=== PATIENT | female | born 1970 | race Caucasian/White ===

== ENCOUNTER → 2021-04-21 | Outpatient (CLI) | payer OTHER ==
[2021-04-21 15:33] LABS: INR 0.9 (<1.2); Partial Thromboplastin Time 23.6 sec (22.0-30.0); Prothrombin Time 9.5 sec (9.0-12.0)
[2021-04-21 18:41] LABS: HCT 44.4 % (37.2-46.3); HGB 14.1 g/dL (12.0-15.0); MCH 29.2 pg (27.0-32.0); MCHC 31.8 g/dL (32.0-37.0); MCV 91.9 fL (80.0-97.0); Mean Platelet Volume 9.8 fL (9.5-12.2); Platelet Count 366 X 10*3/uL (140-440); RBC 4.83 X 10*6/uL (4.10-5.20); RDW 14.2 % (11.5-14.5); WBC 8.12 X 10*3/uL (4.50-10.00)
[2021-04-22 17:12] LABS: African American GFR (CKD) 118.7 (60.0-200.0); Albumin 4.5 g/dL (3.80-4.90); Albumin/Globulin Ratio 1.36 (1.60-3.17); Anion Gap 12.4 mmol/L (4.00-12.00); BUN/Creat Ratio 14.29 Ratio (12.00-20.00); Carbon Dioxide 21.6 mmol/L (21.6-31.8); Globulin 3.3 g/dL (1.6-3.3); Non-African American GFR(CKD) 102.5 (60.0-200.0); Potassium 4.8 mmol/L (3.5-5.5); Total Bilirubin 0.4 mg/dL (0.2-1.2); Total Protein 7.8 g/dL (6.2-8.2)
== END | disposition home or self-care (01) ==
LOC: LABWHC1 13:54
PROVIDERS: ATTEND Internal Medicine
DX: R23.3 Spontaneous ecchymoses (principal); R53.83 Other fatigue
CPT/HCPCS: 36415; 80053; 84443; 85027; 85610; 85730

== ENCOUNTER → 2024-02-21 | Outpatient (CLI) | payer OTHER ==
--- NOTE | 2024-02-27 11:53 | MM ---
Reason for Exam: Screening (asymptomatic). Baseline mammogram. Patient History: Menarche at age 15. First Full-Term at age 21. Patient used Hormonal Contraceptives for 35 years. Maternal grandmother had breast cancer. Paternal grandmother had breast cancer. Last menstrual period: 02/08/2024 Risk Values: Shelby 5 year model risk: 0.7%. NCI Lifetime model risk: 6.4%. Prior Study Comparison: Patient's first Mammogram. Tissue Density: There are scattered areas of fibroglandular density. Findings: Analyzed By CAD. Right breast: Focal asymmetry right breast 10.4 centers the nipple on MLO view 11 cm CC view slightly lateral slightly inferior. Left breast: There is no suspicious group of microcalcifications or new suspicious mass. Overall Assessment: Incomplete: need additional imaging evaluation, BI-RAD 0 Management: Diagnostic Breast Ultrasound of the right breast. [facility] will attempt to contact patient to return for supplemental views and ultrasound if indicated. Patient should continue monthly self-breast exams. A clinical breast exam by your physician is recommended on an annual basis. This exam should not preclude additional follow-up of suspicious palpable abnormalities. Note on Shelby scores and lifetime risk: 1. A Shelby score greater than 3% is considered moderate risk. If this is the case, consider specialist referral to assess eligibility for a risk reducing agent. 2. If overall lifetime risk for the development of breast cancer is 20% or higher, the patient may qualify for future screening with alternating mammogram and breast MRI. Electronically signed and approved by: Kieran Schaeffer DO
== END | disposition home or self-care (01) ==
LOC: RADMAMWWP 13:18
PROVIDERS: ATTEND Family Medicine
DX: Z12.31 Encounter for screening mammogram for malignant neoplasm of breast (principal); Z80.3 Family history of malignant neoplasm of breast
CPT/HCPCS: 77067

== ENCOUNTER → 2024-02-28 | Outpatient (CLI) | payer OTHER ==
--- NOTE | 2024-02-28 11:13 | USB ---
Reason for Exam: Additional evaluation requested from abnormal screening. Patient History: Menarche at age 15. First Full-Term at age 21. Patient used Hormonal Contraceptives for 35 years. Maternal grandmother had breast cancer. Paternal grandmother had breast cancer. Risk Values: Shelby 5 year model risk: 0.7%. NCI Lifetime model risk: 6.4%. Technique: Method: Targeted. Prior Study Comparison: 02/21/2024 Bilateral MG screening mammo w CAD, [facility]. Findings: The lower outer quadrant of the right breast, the axilla of the right breast and the retroareolar of the right breast were scanned. Slightly irregular hypoechoic lesion at the right 8:00 position 10 cm from the nipple measuring 1.3 x 0.9 cm. Ultrasound-guided core biopsy is recommended. Overall Assessment: Suspicious, BI-RAD 4 Management: Ultrasound Core Biopsy of the right breast. A clinical breast exam by your physician is recommended on an annual basis and results should be correlated with mammographic findings. This exam should not preclude additional follow-up of suspicious palpable abnormalities. Results were given to the patient verbally at the time of exam. Electronically signed and approved by: David Clifton M.D. Radiologis
== END | disposition home or self-care (01) ==
LOC: RADUSWWP 10:39
PROVIDERS: ATTEND Family Medicine
DX: R92.8 Other abnormal and inconclusive findings on diagnostic imaging of breast (principal); Z80.3 Family history of malignant neoplasm of breast

== ENCOUNTER → 2024-03-20 | Day surgery (SDC) | payer OTHER ==
--- NOTE | 2024-03-29 14:50 | MM ---
Reason for Exam: Post Procedure Mammogram. Last screening mammogram was performed less than 1 month ago. Patient History: Menarche at age 15. First Full-Term at age 21. Patient used Hormonal Contraceptives for 35 years. Maternal grandmother had breast cancer. Paternal grandmother had breast cancer. Risk Values: Shelby 5 year model risk: 0.7%. NCI Lifetime model risk: 6.4%. Prior Study Comparison: 02/21/2024 Bilateral MG screening mammo w CAD, [facility]. Tissue Density: Right: There are scattered areas of fibroglandular density. Pathology Description: Location: 8 o'clock. Marker Left Behind. Needle Type: Mammotome Cores: 5 Skin Nicks: 1 Gauge: 13 The procedure of ultrasound guided core biopsy was explained to the patient. Benefits, alternatives, and risks were discussed. An informed consent was then obtained. A timeout was performed. The patient was placed in supine positioning for imaging and for the procedure. The overlying skin was prepped and draped in usual sterile fashion. Lidocaine was used as anesthetic into the skin and subcutaneous tissue up to area of concern in the right breast, 8:00 position 10 cm from the nipple. A small skin chelsea was made with surgical scalpel. Under ultrasound guidance, a 12-gauge vacuum assisted biopsy gun device was used to obtain 5 core samples. A biopsy clip was left in lesion. Hydromark coil core marker was placed. The patient tolerated the procedure well without any immediate complication. The patient was kept in the radiology department for short stay after the procedure and then discharged home in stable condition. Postprocedure mammogram: The patient was transferred to mammography for physician ordered post procedure mammogram for clip placement verification. Clip appears to be in the appropriate position. Placement during ultrasound appear to be at the biopsy site without migration. Impression: Successful ultrasound guided core biopsy of area of concern in the right breast, full pathology results to follow. Recommendations: 1. Recommendations are pending pathology results. Pathology Results: Result: Benign. Pathology and radiology were reviewed. Findings are concordant. RIGHT BREAST, EIGHT O'CLOCK, ULTRASOUND GUIDED CORE BIOPSY: Fragments of fibroepithelial lesion having apocrine metaplasia and usual ductal hyperplasia with focal stromal myxoid change; compatible with fibroadenoma (see note). Background fibrocystic change present. Notes It is noted the patient has mammogram findings of focal asymmetry within the right breast and a 1.3 x 0.9 cm slightly irregular lesion within the 8 o'clock right breast. The histologic findings represent a fibroadenoma with proliferative fibrocystic change. Immunohistochemistry with CK5/6 is performed with appropriate control on the tissue block and stains positive within myoepithelial cells and in hyperplastic ductal cell with a mosaic pattern, supporting the diagnosis. Correlation with imaging studies is suggested. Overall Assessment: Benign Assessment: MG diagnostic mammo RT wo CAD - Right: Probably benign, BI-RAD 3. Management: Diagnostic Mammogram of the right breast in 6 months. Diagnostic Breast Ultrasound of the right breast in 6 months. Electronically signed and approved by: Floyd Elizabeth D.O. Radiologis
== END ==
LOC: RADUSWWP 07:34
PROVIDERS: ATTEND Surgery
DX: N60.81 Other benign mammary dysplasias of right breast (principal); R92.8 Other abnormal and inconclusive findings on diagnostic imaging of breast; Z80.3 Family history of malignant neoplasm of breast
CPT/HCPCS: 88305; 88342; 77065; 19083; A4648

== ENCOUNTER → 2024-04-04 | Outpatient (CLI) | payer OTHER ==
[2024-04-04 11:31] VITALS: BP 139/82; PULSE 71; RESP 17; TEMP 98.3
--- NOTE | 2024-04-04 11:45 | P.GSCN ---
History of Present Illness Consult date: 04/04/24 Reason for Consult: fibroadenoma right breast Requesting physician: Sunny Núñez History of present illness: Simona is a 53 year old female seen in consultation for DR. Núñez regarding a right breast biopsy. She had a bilateral mammogram on 02-21-24 which was BIRAD 0, this led to a right breast ultrasound on 02-28-24 which showed a 1.3 by 0.9 cm lesion in the right breast. A biopsy of this was benign concordant for a fibroadenoma. This was personally reviewed ad discussed with Dr. Lopez from radiology. Any lumps masses or nodules of concern in either breast. This was detected on a routine screening mammogram. She has never had any surgery on her breast. She is not complaining of any recent trauma or infection in the breast. She is not complaining of any nipple discharge or skin changes. Caffeine: 5 cups coffee nicotine: 1 PPD/ for 35 years chocolate: occasional BCP: 20 years, stopped about 10 years ago, had an IUD placed at that time Family History: paternal grandmother: breast cancer maternal grandmother: breast cancer of this Hormonal History: menarche: 14 , breast fed no, age at first : 21 menoapause: now, LMP 1 montha ago, irregular Surgical History: gallbladder Medical History: anxiety/depression high cholesterol low vitamen D hypothyroid Social History: 1 pack/day for 35 years Alcohol: Negative Drugs: Negative Review of Systems - Constitutional Reports sweats - EENT EENT Comment(s): bilateral stys Eyes: bilateral dry eye, denies blurred vision Ears: bilateral: decreased hearing, tinnitus Ears, nose, mouth and throat: Denies dysphagia - Breasts bilateral: as per HPI - Cardiovascular Denies chest pain, Denies shortness of breath - Respiratory Reports as per HPI, Reports cough, Reports sleep apnea - Gastrointestinal Reports as per HPI - Genitourinary Genitourinary: Reports as per HPI Menstruation: Reports cycle variable - Musculoskeletal Reports as per HPI - Integumentary Reports dryness - Neurological Denies headaches, Denies syncope - Psychiatric Reports anxiety, Reports depression - Endocrine Reports fatigue, Reports weight change - Hematologic/Lymphatic Reports easy bruising - Allergic/Immunologic Reports seasonal allergies Past Medical History Past Medical History: No Reported History, Osteoarthritis (OA) Additional Past Medical History / Comment(s): knee arthritis History of Any Multi-Drug Resistant Organisms: None Reported Past Surgical History: Cholecystectomy Past Anesthesia/Blood Transfusion Reactions: No Reported Reaction Past Psychological History: Anxiety Smoking Status: Current every day smoker Past Alcohol Use History: None Reported Additional Past Alcohol Use History / Comment(s): started smoking age 17. smokes 1ppd Past Drug Use History: None Reported Medications and Allergies Home Medications Medication Instructions Recorded Confirmed Type Escitalopram Oxalate [Lexapro] 10 mg PO DAILY 03/01/24 04/04/24 History Atorvastatin [Lipitor] 10 mg PO DAILY 04/04/24 04/04/24 History Cholecalciferol (Vitamin D3) 1 tab PO WEEKLY 04/04/24 04/04/24 History [Vitamin D3 (1250 Mcg = 50,000 Iu)] Levothyroxine Sodium [Synthroid] 75 mcg PO DAILY 04/04/24 04/04/24 History Allergies Allergy/AdvReac Type Severity Reaction Status Date / Time No Known Allergies Allergy Verified 04/04/24 11:15 Surgical - Exam - General moderate distress - Eyes normal ocular movement - ENT no hearing loss - Neck trachea midline - Respiratory normal respiratory effort, clear to auscultation - Cardiovascular Heart Sounds: normal: S1, S2 - Abdomen Abdomen: soft, non tender, no guarding, no rigid, no rebound - Integumentary normal turgor - Neurologic no disoriented, no combative - Musculoskeletal normal gait - Psychiatric oriented to time, oriented to person, oriented to place, speech is normal, memory intact Bresat Exam: BRA: 2XL Inspection: Bilateral grade 3 ptosis Palpation: Right breast at the biopsy site o'clock position some mild fullness which is most likely resolving hematoma, otherwise no dominant masses or nodules of concern Axilla: No adenopathy of concern Left breast: Palpation: Multi positional exam no dominant masses or nodules of concern Left axilla: No adenopathy of concern Under both breast there is a fungal infection, right breast is slightly larger than left breast Results Mammogram and ultrasound personally reviewed and discussed with Dr. Lopez; biopsy felt to be benign concordant Assessment and Plan Assessment: Impression: Right breast 8 o'clock position biopsy-proven fibroadenoma Bilateral fungal infection under both breast Plan: Nystatin to fungal infection Repeat right breast ultrasound in 6 months to monitor stability of fibroadenoma Follow-up sooner any questions or concerns At this time the fibroadenoma is asymptomatic for the patient. We will follow it conservatively. CC: Dr. Núñez
== END ==
LOC: WWCWWP 09:44
PROVIDERS: ATTEND Surgery
DX: D24.1 Benign neoplasm of right breast (principal); B48.8 Other specified mycoses; F17.210 Nicotine dependence, cigarettes, uncomplicated; Z80.3 Family history of malignant neoplasm of breast

== ENCOUNTER → 2024-04-24 | Outpatient (CLI) | payer OTHER ==
--- NOTE | 2024-05-28 09:40 | CONS ---
cc: Sunny Núñez MD CONSULTATION 53-year-old lady has been evaluated in [facility] for possible obstructive sleep apnea-hypopnea syndrome. HISTORY OF PRESENT ILLNESS: Sleep-wake evaluation. 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 Subsequently, she is falling asleep around 2 a.m. and sleeps until around 9 a.m. 7 days a week. She does have problems with falling asleep, has TV set in bedroom. She sleeps in different positions, including back, side, and chair. She has loud snoring, witnessed episodes of stopped breathing during sleep. Positive history of awakenings with choking, gasping for air, sweating, grinding teeth, dry mouth, panic attacks. The patient wakes up 2 times with nocturia. No history of hypnagogic hallucinations, sleep paralysis, or cataplexy. In the morning, the patient wakes up tired, has difficulties to pay attention, falling asleep during the day, has problems with concentration, depression and anxiety. Walsh Sleepiness Scale significantly increased to 12. Usually the patient does not take naps during the day. PAST MEDICAL HISTORY: Positive for hypertension, hyperlipidemia, headaches, hypothyroidism, depression, peptic ulcer disease, and left breast fibroadenoma. PAST SURGICAL HISTORY: Cholecystectomy. SOCIAL HISTORY: Positive for smoking for about 35 pack years. The patient continues to smoke. Alcohol consumption, none. MEDICATIONS: 1. Levothyroxine 75 mcg once a day. 2. Atorvastatin 20 mg once a day. 3. Lexapro 10 mg once a day. 4. Vitamin D. REVIEW OF SYSTEMS: Awakenings from sleep, loud snoring, sleepiness during the day. No fevers. No double vision. No shortness of breath. No abdominal pain. No bleeding episodes. No chest pain. No blood in the stool or urine. No seizures. PHYSICAL EXAMINATION: GENERAL: lady without distress. VITAL SIGNS: BP 113/76, HR 89, RR 16, height 5 feet 2 inches, weight 285.8, BMI 52.1, temperature 98.2, oxygen saturation at room air 96%. HEENT: PERRLA, EOMI, evaluation of oropharynx showed tongue protrudes midline. Oropharynx, extremely low position of soft palate, Mallampati 4. NECK: Supple, no JVD. Thyroid is not palpable. Neck 17.5 inches in circumference. LUNGS: Clear to percussion and to auscultation. Good air exchange. No wheezing or rhonchi. HEART: S1, S2 regular. No murmurs, gallops, or rubs. ABDOMEN: Soft and nontender. Bowel sounds are present. No organomegaly appreciated. Abdomen obese. EXTREMITIES: No clubbing or cyanosis. 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 Cranial nerves 2 to 7 intact. There is no fasciculation or atrophy. noted. No focal deficits observed. IMPRESSION: 1. Loud snoring, witnessed episodes of stopped breathing during sleep by , extremely low position of soft palate, Mallampati 4, wide neck, 17.5 inches in circumference, sleepiness during the day with Walsh Sleepiness Scale increased to 12. Obstructive sleep apnea-hypopnea syndrome. 2. Obesity, BMI 52.1. 3. Hypertension. 4. Hyperlipidemia. 5. Headaches. 6. Hypothyroidism. 7. History of general depression. 8. History of peptic ulcer disease. 9. Left breast fibroadenoma on monitoring. 10.Status post cholecystectomy. PLAN: 1. Home sleep apnea test for checking patient's breathing during the sleep. 2. Aggressive losing weight program. 3. Sleep hygiene, regular time in bed for at least 7.5 to 8 hours. 4. Precautions related to driving. No driving if feeling sleepiness. 5. Following plan after reading sleep study. Thank you very much for referring this patient for consultation. MMODL / IJN: [id number] / [place]
== END ==
LOC: 3 N SLEEP 13:00
PROVIDERS: ATTEND Internal Medicine
CPT/HCPCS: 99211

== ENCOUNTER → 2024-07-16 | Outpatient (CLI) | payer OTHER ==
--- NOTE | 2024-07-17 10:27 | P.PCN ---
Description of Procedure: CLINICAL: A home sleep apnea test has been done for confirmation of possible obstructive sleep apnea-hypopnea syndrome. DESCRIPTION OF PROCEDURE: RESULTS: Recording time was 7 hours 30 minutes. Evaluation time was 6 hours 37 minutes. Evaluation time is sufficient for making conclusion about results of the test. Raw data of sleep recording has been reviewed and is adequate. Respiratory channel showed 66 apneas and 340 hypopneas. Apnea-hypopnea index was 62.6 per hour. Pulse rate in the range between minimum 56, maximum 109, average 71 by computer calculation. Lowest desaturation was 74%. IMPRESSION: 1. Severe Obstructive Sleep Apnea Hypopnea Syndrome. Please see other impressions from consultation. PLAN: 1. The patient should have PAP titration for correction of respiratory abnormallities during sleep. 2. Sleep hygiene with regular time in bed for at least 8 hours. 3. Watching and losing weight. 4. No driving if feeling any sleepiness. Thank you very much for allowing me to participate in the management of your patient. Sincerely, Stanton Ardon MD, PhD, FAASM Diplomat of [place] [employer] Sleep Medicine Board of [place] [employer] [place] [employer] [facility] [place] cc: Sunny Núñez DO
== END ==
LOC: 3 N SLEEP 16:25
PROVIDERS: ATTEND Internal Medicine
DX: G47.33 Obstructive sleep apnea (adult) (pediatric) (principal)

== ENCOUNTER → 2024-09-27 | Outpatient (CLI) | payer OTHER ==
--- NOTE | 2024-09-27 13:32 | USB ---
Reason for Exam: Follow-up at short interval from prior study. Patient History: Menarche at age 15. First Full-Term at age 21. Patient used Hormonal Contraceptives for 35 years. 03/20/2024, Benign US biopsy breast VAD RT on the right side. Maternal grandmother had breast cancer. Paternal grandmother had breast cancer. Risk Values: Shelby 5 year model risk: 0.9%. NCI Lifetime model risk: 7.4%. Prior Study Comparison: 02/21/2024 Bilateral MG screening mammo w CAD, [facility]. 02/28/2024 Right US breast workup limited RT, [facility]. 03/20/2024 Right MG diagnostic mammo RT wo CAD, [facility]. Findings: The area of palpable concern of the right breast, the axilla of the right breast and the retroareolar of the right breast were scanned. Targeted ultrasound today shows 9 x 6 cm circumscribed slightly hypoechoic lesion that is avascular at 8:00 position 10 cm distance from nipple. Prior lesion was slightly larger and had benign biopsy results in March. No new suspicious lesion is evident including scanning of the subareolar and right axillary region which shows incidental benign subcentimeter lymph node. Overall Assessment: Benign, BI-RAD 2 Management: Screening Mammogram of both breasts in 6 months. Return to routine follow-up. A clinical breast exam by your physician is recommended on an annual basis and results should be correlated with mammographic findings. This exam should not preclude additional follow-up of suspicious palpable abnormalities. Results were given to the patient verbally at the time of exam. [facility], , 09/27/2024 1:29 PM. Electronically signed and approved by: Harshil Pretty M.D.
== END | disposition home or self-care (01) ==
LOC: RADUSWWP 12:44
PROVIDERS: ATTEND Surgery
DX: N63.0 Unspecified lump in unspecified breast (principal); Z80.3 Family history of malignant neoplasm of breast

== ENCOUNTER → 2024-10-11 | Outpatient (CLI) | payer OTHER ==
[2024-10-11 12:11] VITALS: BP 122/80; PULSE 85; RESP 18; TEMP 97.6
--- NOTE | 2024-10-11 12:47 | P.PN ---
Subjective Progress Note Date: 10/11/24 Principal diagnosis: fibroadenoma right breast 10-11-24 Reason for Consult: fibroadenoma right breast Requesting physician: Sunny Núñez History of present illness: Simona is a 53 year old female seen in consultation for DR. Núñez regarding a right breast biopsy. She had a bilateral mammogram on 02-21-24 which was BIRAD 0, this led to a right breast ultrasound on 02-28-24 which showed a 1.3 by 0.9 cm lesion in the right breast. A biopsy of this was benign concordant for a fibroadenoma. This was personally reviewed and discussed with Dr. Lopez from radiology. She was not complaining of any lumps masses or nodules of concern in either breast. This was detected on a routine screening mammogram. She had never had any surgery on her breast. She was not complaining of any recent trauma or infection in the breast. She is not complaining of any nipple discharge or skin changes. This is being followed for stability of the lesion. A repeat right breast ultrasound was done on 09-27-24. This was personally reviewed. The area of fibroadenoma is 9 by 6 cm and felt to be slightly smaller than prior. She developed two superficial cyts/abcesses on her breast and these drained and had puss. She is not complaining of any fever or chills. She has not complained of any other lumps masses or nodules of concern within her breast tissue. Caffeine: 5 cups coffee nicotine: 1 PPD/ for 35 years chocolate: occasional BCP: 20 years, stopped about 10 years ago, had an IUD placed at that time Family History: paternal grandmother: breast cancer maternal grandmother: breast cancer of this Hormonal History: menarche: 14 , breast fed no, age at first : 21 menoapause: now, LMP 1 montha ago, irregular Surgical History: gallbladder Medical History: anxiety/depression high cholesterol low vitamen D hypothyroid Social History: 1 pack/day for 35 years Alcohol: Negative Drugs: Negative Review of Systems - Constitutional Reports sweats - EENT EENT Comment(s): bilateral stys Eyes: bilateral dry eye, denies blurred vision Ears: bilateral: decreased hearing, tinnitus Ears, nose, mouth and throat: Denies dysphagia - Breasts bilateral: as per HPI - Cardiovascular Denies chest pain, Denies shortness of breath - Respiratory Reports as per HPI, Reports cough, Reports sleep apnea - Gastrointestinal Reports as per HPI - Genitourinary Genitourinary: Reports as per HPI Menstruation: Reports cycle variable - Musculoskeletal Reports as per HPI - Integumentary Reports dryness - Neurological Denies headaches, Denies syncope - Psychiatric Reports anxiety, Reports depression - Endocrine Reports fatigue, Reports weight change - Hematologic/Lymphatic Reports easy bruising - Allergic/Immunologic Reports seasonal allergies Past Medical History Past Medical History: No Reported History, Osteoarthritis (OA) Additional Past Medical History / Comment(s): knee arthritis History of Any Multi-Drug Resistant Organisms: None Reported Past Surgical History: Cholecystectomy Past Anesthesia/Blood Transfusion Reactions: No Reported Reaction Past Psychological History: Anxiety Smoking Status: Current every day smoker Past Alcohol Use History: None Reported Additional Past Alcohol Use History / Comment(s): started smoking age 17. smokes 1ppd Past Drug Use History: None Reported Medications and Allergies Home Medications Medication Instructions Recorded Confirmed Type Escitalopram Oxalate [Lexapro] 10 mg PO DAILY 03/01/24 04/04/24 History Atorvastatin [Lipitor] 10 mg PO DAILY 04/04/24 04/04/24 History Cholecalciferol (Vitamin D3) 1 tab PO WEEKLY 04/04/24 04/04/24 History [Vitamin D3 (1250 Mcg = 50,000 Iu)] Levothyroxine Sodium [Synthroid] 75 mcg PO DAILY 04/04/24 04/04/24 History Allergies Allergy/AdvReac Type Severity Reaction Status Date / Time No Known Allergies Allergy Verified 04/04/24 11:15 Objective - Vital Signs Vital signs: Vital Signs Temp 97.6 F 10/11/24 12:09 Pulse 85 10/11/24 12:09 Resp 18 10/11/24 12:09 BP 122/80 10/11/24 12:09 Pulse Ox 93 L 10/11/24 12:09 FiO2 Intake & Output 10/10/24 10/11/24 10/11/24 18:59 06:59 18:59 Weight 132.449 kg - Constitutional General appearance: Present: cooperative - EENT Eyes: Present: EOMI ENT: Present: hearing grossly normal - Respiratory Respiratory: bilateral: CTA - Cardiovascular Rhythm: regular Heart sounds: normal: S1, S2 - Integumentary Integumentary: Present: normal turgor - Musculoskeletal Musculoskeletal: Present: gait normal - Psychiatric Psychiatric: Present: A&O x's 3, appropriate affect, intact judgment & insight - Additional findings Additional findings: Bresat Exam: BRA: 2XL Inspection: Bilateral grade 3 ptosis; superficial abscesses which appear to be healing on her breast and 2 sites at the 7:00 site and the 11:00 site Palpation: Right breast Multi positional exam no dominant masses or nodules of concern Axilla: No adenopathy of concern Left breast: Palpation: Multi positional exam no dominant masses or nodules of concern Left axilla: No adenopathy of concern Under both breast there is a fungal infection, right breast is slightly larger than left breast Assessment and Plan Assessment: Impression: Right breast 8 o'clock position biopsy-proven fibroadenoma Bilateral fungal infection under both breast Healing superficial breast abscesses or purulence on today's exam Plan: Nystatin to fungal infection Will mammogram in 6 months Follow-up sooner any questions or concerns Skin lesions in the right breast appear to be healing well as per the patient we will follow this conservatively also At this time the fibroadenoma is asymptomatic for the patient. We will follow it conservatively. CC: Dr. Núñez
== END ==
LOC: WWCWWP 11:26
PROVIDERS: ATTEND Surgery
DX: N60.21 Fibroadenosis of right breast (principal); B37.89 Other sites of candidiasis; Z80.3 Family history of malignant neoplasm of breast; Z90.49 Acquired absence of other specified parts of digestive tract

== ENCOUNTER → 2025-04-10 | Outpatient (CLI) | payer OTHER ==
--- NOTE | 2025-04-10 11:07 | MM ---
Reason for Exam: Additional evaluation requested from prior study. Last mammogram was performed 1 year(s) and 1 month(s) ago. Patient History: Menarche at age 15. First Full-Term at age 21. Perimenopausal. Patient used Hormonal Contraceptives for 35 years. 03/20/2024, Benign US biopsy breast VAD RT on the right side. Maternal grandmother had breast cancer. Paternal grandmother had breast cancer. Last menstrual period: 04/08/2025 Risk Values: Shelby 5 year model risk: 0.9%. NCI Lifetime model risk: 7.4%. Prior Study Comparison: 02/21/2024 Bilateral MG screening mammo w CAD, [facility]. 03/20/2024 Right MG diagnostic mammo RT wo CAD, [facility]. Tissue Density: The breasts are heterogeneously dense, which may obscure small masses. Findings: Analyzed By CAD. Chronic nodularity outer right breast middle to posterior depth with microclip related to prior biopsy. Global asymmetry upper outer quadrant left breast remains unchanged. No significant change from prior exams. Overall Assessment: Benign, BI-RAD 2 Management: Screening Mammogram of both breasts in 1 year. Results were given to the patient verbally at the time of exam. Patient should continue monthly self-breast exams. A clinical breast exam by your physician is recommended on an annual basis. This exam should not preclude additional follow-up of suspicious palpable abnormalities. Note on Shelby scores and lifetime risk: 1. A Shelby score greater than 3% is considered moderate risk. If this is the case, consider specialist referral to assess eligibility for a risk reducing agent. 2. If overall lifetime risk for the development of breast cancer is 20% or higher, the patient may qualify for future screening with alternating mammogram and breast MRI. [facility], , 04/10/2025 11:03 AM. Electronically signed and approved by: Matilda Espinoza M.D. Radiologist
== END | disposition home or self-care (01) ==
LOC: RADMAMWWP 10:19
PROVIDERS: ATTEND Surgery
DX: R92.8 Other abnormal and inconclusive findings on diagnostic imaging of breast (principal); R92.333 Mammographic heterogeneous density, bilateral breasts; Z80.3 Family history of malignant neoplasm of breast; Z92.0 Personal history of contraception
CPT/HCPCS: 77062; 77066